=== PATIENT | female | born 2000 | race Two or more races ===

== ENCOUNTER 2018-12-10 22:03 | Emergency (ER) | payer SELFPAY ==
[~2018-12-10] VITALS: Ht 154.9 cm; Wt 51.3 kg
--- NOTE | 2018-12-10 22:15 | NUR ---
Note undone in EDM - 12/11/18 at 0037 by TOMASZ FEVER, CHILLS, COUGH X 3 WKS, SEEN AT [facility]IV[facility] AZITHROMYCIN & AUGMENTIN, NO Pt came to ER complaining nausea and vomitting x 2 times today. Pt has been taking azithromycin and Augmentin for fever, chills, and cough x 3 weeks. Pt is AAXO4. NAD NOTED. Respirations even and unlabored. Pt ambulated to er bed 4. Pt put on the monitor and waiting eval from ER .
--- NOTE | 2018-12-10 22:45 | NUR ---
Pt being monitored.
[2018-12-10] MEDS ORDERED: ONDANSETRON HCL/PF 4 MG/2 ML VIAL IVP ONE (23:00)
[2018-12-10] MEDS ORDERED: IV NS 0.9% 1,000 ML BAG IV ONE (23:00)
[2018-12-10] MEDS ORDERED: ONDANSETRON HCL/PF 4 MG/2 ML VIAL ONE (23:20)
--- NOTE | 2018-12-10 23:30 | NUR ---
Pt resting in bed. No Nausea or distress noted. pt on the monitor.
[2018-12-10 23:32] LABS: APPEARANCE,URINE TURBID (CLEAR); BILIRUBIN,URINE 1+ (NEGATIVE); BLOOD, URINE 3+ Ery/uL (NEGATIVE); COLOR,URINE BROWN (YELLOW); KETONES,URINE 1+ (NEGATIVE); LEUKOCYTE ESTERASE ,URINE TRACE (NEGATIVE); NITRITE, URINE NEGATIVE (NEGATIVE); PROTEIN,URINE 2+ mg/dl (NEGATIVE); UGLUCOSE NEGATIVE (NEGATIVE); UROBILINOGEN,URINE 0.2 EU/dL (0.2)
[2018-12-10 23:34] LABS: RBC,URINE TOO NUMEROUS TO COUN /HPF (0-2)
[2018-12-10 23:35] LABS: BACTERIA,URINE Few /HPF (None Seen); SQUAMOUS EPITHELIAL CELL,UR Few /HPF (None Seen)
[2018-12-11 00:51] VITALS: BP 118/68
== END 2018-12-11 00:53 | disposition home or self-care (01) ==
LOC: ER 22:06
DX: B34.9 Viral infection, unspecified (principal); R11.2 Nausea with vomiting, unspecified; J04.0 Acute laryngitis
CPT/HCPCS: 71045; 81001; 84703; 87086; 87804 ×2; 96361; 96374; 99284; A4606; J2405; Z7610; 81000-TC; 87400; J7030

== ENCOUNTER 2020-01-16 15:30 | Emergency (ER) | payer BC ==
[~2020-01-16] VITALS: Ht 154.9 cm; Wt 55.3 kg
--- NOTE | 2020-01-16 15:40 | NUR ---
PT TO ED BED 03. C/O INTERMITTENT CHEST PAIN FOR MONTHS. PT STATES STARTED HAVING NAUSEA VOMITING AND DIARRHEA SINCE YESTERDAY. PT IS AFEBRILE RN CHRONIC. PLACED ON MONITOR. VSS. AWAITING MD ELIZONDO.
--- NOTE | 2020-01-16 16:16 | NUR ---
[employer] MANAGER AT BEDSIDE FOR EVAL.
[2020-01-16] MEDS ORDERED: IV NS 0.9% 1,000 ML BAG IV ONE (16:30)
[2020-01-16] MEDS ORDERED: ONDANSETRON HCL/PF 4 MG/2 ML VIAL IVP ONE (16:30)
--- NOTE | 2020-01-16 16:37 | NUR ---
IV LINE STARTED BLOOD DRAWN AND SENT TO LAB.
[2020-01-16] MEDS ORDERED: ONDANSETRON HCL/PF 4 MG/2 ML VIAL ONE (16:44)
[2020-01-16 16:47] LABS: BASOPHILS % (AUTO) 0.1 % (0.0-2.0); EOSINOPHILS % (AUTO) 0.2 % (0.0-6.0); HEMATOCRIT 43 % (33-45); HEMOGLOBIN 14.1 g/dL (11.5-14.8); LYMPHOCYTES # (AUTO) 0.6 /CMM (0.8-4.8); LYMPHOCYTES % (AUTO) 6.9 % (20.0-44.0); MEAN CORPUSCULAR HGB CONC 33 g/dl (31.0-36.0); MEAN CORPUSCULAR VOLUME 88 fL (82-100); MONOCYTES # (AUTO) 0.3 /CMM (0.1-1.30); MONOCYTES % (AUTO) 3.2 % (2.0-12.0); NEUTROPHILS % (AUTO) 89.6 % (43.0-81.0); PLATELET COUNT (AUTO) 230 /CMM (150-450); RED BLOOD CELL COUNT(AUTO) 4.91 MIL/uL (4.0-5.2); WHITE BLOOD COUNT (AUTO) 8.9 K/uL (4.3-11.0)
[2020-01-16] MEDS ORDERED: KETOROLAC TROMETHAMINE INJ 30 MG/ML VIAL IV ONE (17:00)
[2020-01-16 17:04] LABS: ALANINE AMINOTRANSFERASE 14 U/L (12-78); ALBUMIN 4.1 g/dL (3.4-5.0); ALKALINE PHOSPHATASE 80 U/L (46-116); ASPARTATE AMINOTRANSFERASE 19 U/L (15-37); BILIRUBIN,DIRECT 0.1 mg/dL (0.0-0.2); BILIRUBIN,TOTAL 0.6 mg/dL (0.2-1.0); CALCIUM, SERUM 9.8 mg/dL (8.5-10.1); CARBON DIOXIDE 24 mmol/L (21-32); CHLORIDE 102 mmol/L (98-107); CREATININE 0.8 mg/dL (0.6-1.3); GLUCOSE 87 mg/dL (74-106); LIPASE 142 U/L (73-393); POTASSIUM 3.7 mmol/L (3.5-5.1); SODIUM SERUM 135 mmol/L (136-145); TOTAL PROTEIN, SERUM 7.8 g/dL (6.4-8.2); UREA NITROGEN, BLOOD 16 mg/dL (7-18)
[2020-01-16] MEDS ORDERED: KETOROLAC TROMETHAMINE INJ 30 MG/ML VIAL ONE (17:08)
--- NOTE | 2020-01-16 18:47 | NUR ---
Patient discharged to home in stable condition. Written and verbal after care instructions given. Patient verbalizes understanding of instruction.Patient discharged to home in stable condition. Written and verbal after care instructions given. Patient verbalizes understanding of instruction.
[2020-01-16 18:48] VITALS: BP 125/77
== END 2020-01-16 18:49 | disposition home or self-care (01) ==
LOC: ER 15:38
DX: R11.2 Nausea with vomiting, unspecified (principal); R19.7 Diarrhea, unspecified; R07.89 Other chest pain
CPT/HCPCS: 36415; 71045; 80048; 80076; 83690; 84484; 85025; 85730; 93005; 96361; 96374; 96375; 99285; J1885; J2405; J7030